=== PATIENT | male | born 1935 | race Caucasian/White ===

== ENCOUNTER 2019-12-07 21:14 | Emergency (ER) | payer MEDICARE ==
[~2019-12-07] VITALS: Wt 113.4 kg
[~2019-12-07 21:14] MED LIST: ACTOPLUS MET 851 TA1; ACTOPLUS MET PO; ALPHA LIPOIC A100 MG PO; ALPHA LIPOIC A200 MG; AMARYL1 MG PO; AMBIEN10 M1 PO; AMLODIPINE5 MG PO; ASPIRIN81 M1 PO; AVPAK AZITHROM250 MG PO; Amaryl2 MG PO; CARAFATE1 G1 PO; CARAFATE1 GM PO; CLINDAMYCIN150 MG PO; COENZYME Q-1010 MG PO; COLACE100 MG PO; COREG12.5 M1 PO; CRESTOR40 MG; Cleocin150 MG PO; FENOFIBRATE145 M1 PO; HEALTH CARE AM PO; IMDUR SA30 MG PO; IMDUR30 MG PO; JANUVIA50 MG PO; LANTUS SOL100 UNIT/1 SQ; LANTUS SOLOS100 U/M1 SC; LANTUS100 U/ML SC; LASIX20 MG PO; LEVAQUIN250 MG PO; LOPRESSOR25 MG PO; MELATONIN3 MG PO; METOPROLOL25 MG PO; MULTI VITAMINS1 TAB PO; Magnesium Oxid400 MG PO; NEURONTIN300 MG PO; NORCO 325 MG-51 TAB PO; NORVASC10 MG PO; NOVOLOG FL100 UNIT/1 SQ; NOVOLOG100 U/ML SG; PEPCID40 MG PO; PLAVIX75 MG PO; PRINIVIL10 MG PO; PRINIVIL20 MG PO; PROTONIX40 MG PO; REGLAN10 MG PO; RITE AID KRILL500 MG; SPIRONOLACTONE25 MG PO; TOPROL XL25 MG PO; TRICOR145 MG PO; VICTOZA6 MG/ML; VITAM; VITAMIN D35000 UNIT PO; VITAMIN D50000 I3 PO
[2019-12-07 21:19] VITALS: BP 147/71
[2019-12-07 21:40] LABS: BASO % 0.6 % (0.0-1.0); EOS # 0.2 10*3/uL (0.0-0.4); HEMATOCRIT 45.2 % (42.0-52.0); LYMPH # 2.1 10*3/uL (1.3-4.4); LYMPH % 32.1 % (27.0-41.0); MEAN CELL VOLUME 94.2 fl (80.0-94.0); MEAN CORPUSCULAR HGB 31.3 pg (27.0-31.0); MEAN CORPUSCULAR HGB CONC 33.2 g/dl (33.0-37.0); MEAN PLATELET VOLUME 10.1 fl (9.6-12.3); MONO # 0.8 10*3/uL (0.1-1.0); MONO % 11.8 % (3.0-9.0); NEUT # 3.4 10*3/uL (2.3-7.9); NEUT % 51.9 % (47.0-73.0); PLATELET COUNT AUTOMATED 251 10*3/uL (130-400); RED CELL DISTRI WIDTH 13.2 % (0-14.5); WHITE BLOOD COUNT 6.6 10*3/uL (4.8-10.8)
[2019-12-07 21:51] LABS: ACT PARTIAL THROMBO TIME 28.6 SECONDS (20.0-32.1); INTERNATIONAL NORM RATIO 1.2 (2.0-3.5)
[2019-12-07 21:56] LABS: ALBUMIN 3.5 gm/dl (3.1-4.5); CREATININE 1.85 mg/dL (0.70-1.30); POTASSIUM 4.2 mmol/L (3.5-5.1); TOTAL PROTEIN 7.4 gm/dL (6.4-8.2)
[2019-12-07 21:57] LABS: TROPONIN I 0.019 ng/ml (<0.045)
[2019-12-08] MEDS ORDERED: PREDNISONE10 MG PO (00:58)
[2019-12-08] MEDS ORDERED: PROAIR HFA8.5 GM INH (00:58)
[2019-12-08] MEDS ORDERED: CEPHALEXIN500 M1 PO (01:23)
== END 2019-12-08 01:34 | disposition home or self-care (01) ==
LOC: ED 21:14
PROVIDERS: Emergency Medicine Emergency Medical Services
DX: J40 Bronchitis, not specified as acute or chronic (principal); E11.22 Type 2 diabetes mellitus with diabetic chronic kidney disease; I13.0 Hypertensive heart and chronic kidney disease with heart failure and stage 1 through stage 4 chronic kidney disease, or unspecified chronic kidney disease; N18.9 Chronic kidney disease, unspecified; I50.9 Heart failure, unspecified; I25.10 Atherosclerotic heart disease of native coronary artery without angina pectoris; K21.9 Gastro-esophageal reflux disease without esophagitis; E78.5 Hyperlipidemia, unspecified; I25.2 Old myocardial infarction; E11.40 Type 2 diabetes mellitus with diabetic neuropathy, unspecified; Z79.2 Long term (current) use of antibiotics; Z79.82 Long term (current) use of aspirin; Z79.899 Other long term (current) drug therapy; Z98.61 Coronary angioplasty status

== ENCOUNTER 2021-09-10 16:09 | Emergency (ER) | payer MEDICARE ==
[~2021-09-10] VITALS: Wt 104.8 kg
[~2021-09-10 16:09] MED LIST changes: +CEPHALEXIN500 M1 PO; +PREDNISONE10 MG PO; +PROAIR HFA8.5 GM INH
[2021-09-10 16:20] VITALS: BP 00/00
== END 2021-09-10 16:30 ==
LOC: ED 16:12
DX: I46.9 Cardiac arrest, cause unspecified (principal); E11.22 Type 2 diabetes mellitus with diabetic chronic kidney disease; I13.0 Hypertensive heart and chronic kidney disease with heart failure and stage 1 through stage 4 chronic kidney disease, or unspecified chronic kidney disease; N18.9 Chronic kidney disease, unspecified; E78.5 Hyperlipidemia, unspecified; K21.9 Gastro-esophageal reflux disease without esophagitis; I25.2 Old myocardial infarction; I25.10 Atherosclerotic heart disease of native coronary artery without angina pectoris; Z79.899 Other long term (current) drug therapy; Z79.82 Long term (current) use of aspirin